=== PATIENT | male | born 1975 | race Hispanic/Latino ===

== ENCOUNTER 2022-04-05 13:39 | Emergency (ER) | payer SELFPAY ==
--- NOTE | 2022-04-05 16:04 | Emergency Department Report ---
ED Recheck HPI - General Stated Complaint: REFILL FOR SEIZURE MEDS Time Seen by Provider: 04/05/22 16:03 Source: patient Mode of arrival: Ambulatory Limitations: No Limitations - History of Present Illness Initial Comments: 47 yo traveling from [place] comes to ER for med refill of his klonopin which he is on for seizure disorder. Last seizure 3 years ago. Complaint: medication refill request Symptoms Since Prior Visit: no new symptoms Associated Symptoms: none - Related Data Previous Rx's Medication Instructions Recorded Last Taken Type clonazePAM [KlonoPIN] 2 mg PO BID #60 04/05/22 Unknown Rx ED Review of Systems ROS: Stated complaint: REFILL FOR SEIZURE MEDS Other details as noted in HPI Comment: All other systems reviewed and negative ED Past Medical Hx - Past Medical History Previous Medical History?: Yes Hx Seizures: Yes - Surgical History Past Surgical History?: No - Family History Family history: no significant - Social History Smoking Status: Current Every Day Smoker Substance Use Type: Alcohol - Medications Home Medications: Home Medications Medication Instructions Recorded Confirmed Last Taken Type clonazePAM [KlonoPIN] 2 mg PO BID #60 04/05/22 Unknown Rx ED Physical Exam - General Limitations: No Limitations General appearance: alert, in no apparent distress - Head Head exam: Present: atraumatic, normocephalic - Eye Eye exam: Present: normal appearance - ENT ENT exam: Present: mucous membranes moist - Neck Neck exam: Present: normal inspection - Respiratory Respiratory exam: Present: normal lung sounds bilaterally. Absent: respiratory distress - Cardiovascular Cardiovascular Exam: Present: regular rate, normal rhythm. Absent: systolic murmur, diastolic murmur, rubs, gallop - GI/Abdominal GI/Abdominal exam: Present: soft, normal bowel sounds - Rectal Rectal exam: Present: deferred - Extremities Exam Extremities exam: Present: normal inspection - Back Exam Back exam: Present: normal inspection - Neurological Exam Neurological exam: Present: alert, oriented X3 - Psychiatric Psychiatric exam: Present: normal affect, normal mood - Skin Skin exam: Present: warm, dry, intact, normal color. Absent: rash ED Recheck MDM - Differential Diagnosis Prescription Refill(s) - Medical Decision Making med refill I've told pt his is courtesy refill that ER's are not to fill meds. He verbalizes understanding. Normal VS as documented by child care associate attestation.: If time is entered above; I have spent that time in minutes in the direct care of this critically ill patient, excluding procedure time. ED Disposition Clinical Impression: Seizure disorder, Medication refill Disposition: 01 HOME / SELF CARE / HOMELESS Is pt being admited?: No Does the pt Need Aspirin: No Condition: Stable Instructions: Seizure, Adult, [id number] Additional Instructions: follow up with pcp for refills Prescriptions: clonazePAM [KlonoPIN] 2 mg PO BID #60 Referrals: CLYDE ABRAHAM MD [Staff Physician] - 3-5 Days Time of Disposition: 16:04
[2022-04-05 19:08] VITALS: BP 155/96
== END 2022-04-05 19:11 | disposition home or self-care (01) ==
LOC: ED 13:39
DX: G40.909 Epilepsy, unspecified, not intractable, without status epilepticus (principal); Z76.0 Encounter for issue of repeat prescription; F17.200 Nicotine dependence, unspecified, uncomplicated
CPT/HCPCS: 99282